=== PATIENT | male | born 1990 | race Caucasian/White ===

== ENCOUNTER 2017-02-23 20:29 | Emergency (ER) | payer SELFPAY ==
[~2017-02-23] VITALS: Ht 185.4 cm; Wt 94.3 kg
[~2017-02-23 20:29] MED LIST: BACTRIM,SEPT1 TABLET PO; KEFLEX500 MG PO; NOHOMEMEDS
[2017-02-23] MEDS ORDERED: MOTRIN800 MG PO (22:50)
[2017-02-23 23:25] VITALS: BP 150/96
== END 2017-02-23 23:25 | disposition home or self-care (01) ==
LOC: EME 20:29
DX: S62.91XA Unspecified fracture of right hand, initial encounter for closed fracture (principal); W22.8XXA Striking against or struck by other objects, initial encounter
CPT/HCPCS: 73130; 99281; 99284

== ENCOUNTER 2017-04-06 20:59 | Emergency (ER) | payer SELFPAY ==
[~2017-04-06] VITALS: Ht 185.4 cm; Wt 93.4 kg
[~2017-04-06 20:59] MED LIST changes: +MOTRIN800 MG PO
[2017-04-06] MEDS ORDERED: PREDNISONE10 M1 PO (22:00)
[2017-04-06] MEDS ORDERED: SKELAXIN800 MG PO (22:00)
[2017-04-06] MEDS ORDERED: MOTRIN600 MG PO (22:00)
[2017-04-06] MEDS ORDERED: SUBOXONE 2 MG-1 EACH SL (22:29)
[2017-04-06 22:47] VITALS: BP 151/98
== END 2017-04-06 22:49 | disposition home or self-care (01) ==
LOC: EME 20:59
DX: M54.31 Sciatica, right side (principal); F17.200 Nicotine dependence, unspecified, uncomplicated
CPT/HCPCS: 99281; 99284; J1885